=== PATIENT | male | born 1955 | race Caucasian/White ===

== ENCOUNTER 2018-06-30 08:20 | Day surgery (SDC) | payer OTHER ==
[~2018-06-30 08:20] MED LIST: ALLERGY MED PO; Apple Cider Vi500 MG PO; FISH1000; MULVITA PO; NAPR220; ROSU10TA PO; VITAMIN C PO
--- NOTE | 2018-06-30 10:07 | NUR ---
Ambulatory in Day Surgery History, Chart, Medications and Allergies reviewed before start of procedure. Lungs clear T/O to Auscultation. Patient confirms NPO status and agrees with scheduled surgery. Patient States Post-Procedure ride home has been arranged.
--- NOTE | 2018-06-30 13:07 | NUR ---
FROM PACU TO STEP VSS. ALERT ORIENTED. STARTED ON FLUIDS
--- NOTE | 2018-06-30 13:46 | NUR ---
Discharge instructions reviewed with patient. Patient verbalizes understanding. Copy given to patient to take home. Patient States Post-Procedure ride home has been arranged. Discharged via wheelchair to private car for ride home.
== END 2018-06-30 22:40 | disposition home or self-care (01) ==
LOC: ORSCMMR 08:20 → ORD 10:15 → ORSCMMR 22:40
PROVIDERS: Surgery
PROC: 05H533Z Insertion of Infusion Device into Right Subclavian Vein, Percutaneous Approach (ICD-10-PCS; principal; 2018-06-30 10:15)
PROC: B5161ZA Fluoroscopy of Right Subclavian Vein using Low Osmolar Contrast, Guidance (ICD-10-PCS; principal; 2018-06-30 10:15)
DX: C81.2 Mixed cellularity Hodgkin lymphoma (principal); J45.909 Unspecified asthma, uncomplicated; Z79.899 Other long term (current) drug therapy
CPT/HCPCS: 77001; C1788; J0690; J1100; J1642; J2250; J2405; J3010; J7120

== ENCOUNTER 2018-08-25 09:56 | Day surgery (SDC) | payer OTHER ==
[~2018-08-25] VITALS: Ht 172.7 cm; Wt 79.7 kg
--- NOTE | 2018-08-25 10:38 | NUR ---
08/25/18 Tiara Wills V PT RESTING IN BED, SIDE RAILS IN PLACE, CALL LIGHT WITHIN REACH, VSS. PT TEACHING COMPLETED. PT DENIES PAIN, DISCOMFORT AND QUESTIONS AT THIS TIME.
--- NOTE | 2018-08-25 13:25 | NUR ---
08/25/18 1325 Lakeshia Edmondson DISCHARGED IN STABLE CONDITION. ACCESS KIT GIVEN AND INSTRUCTED TO TAKE TO HIS ONCOLOGY APPT. KASSY PO FOOD AND FLUIDS PRIOR TO DC HOME. DENIED PAIN AND NAUSEA. DSG X2 C/D/I. AMBULATED TO CAR W/SBA KASSY WELL
== END 2018-08-25 13:22 | disposition home or self-care (01) ==
LOC: ORSCSDS 09:56
PROVIDERS: Surgery
PROC: B5131ZA Fluoroscopy of Right Jugular Veins using Low Osmolar Contrast, Guidance (ICD-10-PCS; principal; 2018-08-25 11:15)
PROC: 05HM33Z Insertion of Infusion Device into Right Internal Jugular Vein, Percutaneous Approach (ICD-10-PCS; principal; 2018-08-25 11:15)
DX: C81.2 Mixed cellularity Hodgkin lymphoma (principal); T82.514A Breakdown (mechanical) of infusion catheter, initial encounter; E78.00 Pure hypercholesterolemia, unspecified; Z79.899 Other long term (current) drug therapy
CPT/HCPCS: 77001; C1788; J0690; J1642; J2001; J2250; J2704; J3010; J7120

== ENCOUNTER 2019-01-11 17:18 | Emergency (ER) | payer OTHER ==
[~2019-01-11] VITALS: Ht 172.7 cm; Wt 79.4 kg
[2019-01-11 18:48] LABS: Source, Urine Clean Catch
[2019-01-11 18:51] LABS: Appearance, Urine Clear (Clear); Bilirubin, Urine Neg (Neg); Blood, Urine Neg (Neg); Color, Urine Yellow (P-Yellow); Glucose Qualitative, Urine Neg (Neg); Ketones, Urine Neg (Neg); Leukocyte Esterase, Urine Neg (Neg); Nitrite, Urine Neg (Neg); Protein, Urine Neg (Neg); Urobilinogen, Urine NORM (Normal)
== END 2019-01-11 21:45 | disposition home or self-care (01) ==
LOC: ER 17:18
PROVIDERS: Physician Assistant
DX: I86.1 Scrotal varices (principal); Z85.72 Personal history of non-Hodgkin lymphomas; Z79.899 Other long term (current) drug therapy
CPT/HCPCS: 76870; 81003; 96372; 99284-25; A9270; J1885

== ENCOUNTER → 2019-07-11 | Outpatient (CLI) | payer MEDICARE | END | disposition home or self-care (01) | LOC: LAB 10:00 → LAB SHORT 10:00 | DX: R30.0 Dysuria (principal); R31.9 Hematuria, unspecified | CPT/HCPCS: 87077; 87086; 87186 ==

== ENCOUNTER 2019-12-02 12:40 | Inpatient (IN) | payer MEDICARE ==
[~2019-12-02] VITALS: Ht 172.7 cm; Wt 82.5 kg
[2019-12-02 13:33] LABS: BASOPHILS ABSOLUTE AUTO 0.02 K/mm3 (0.00-0.23); BASOPHILS PERCENT AUTO 0 % (0-2); EOSINOPHILS PERCENT AUTO 0 % (0-6); Hematocrit 39.4 % (37.0-53.0); Hemoglobin 13.8 g/dL (13.5-17.5); IMMATURE GRAN ABSOLUTE AUTO 0.07 K/mm3 (0.00-0.10); IMMATURE GRAN PERCENT AUTO 1 % (0-1); LYMPHOCYTES ABSOLUTE AUTO 0.59 K/mm3 (0.84-5.20); LYMPHOCYTES PERCENT AUTO 8 % (21-46); MONOCYTES ABSOLUTE AUTO 0.28 K/mm3 (0.16-1.47); MONOCYTES PERCENT AUTO 4 % (4-13); Mean Corpuscular HGB 31.8 pg (26.0-34.0); Mean Corpuscular Volume 91 fL (80-100); Mean Platelet Volume 10.8 fL (9.1-12.4); NEUTROPHILS ABSOLUTE AUTO 6.73 K/mm3 (1.96-9.15); NEUTROPHILS PERCENT AUTO 88 % (41-73); Platelet Count 106 K/mm3 (150-400); RDW Coefficient Variation 13.5 % (11.7-14.2); RDW Standard Deviation 45.5 fL (35.1-46.3); Red Blood Cell Count 4.34 M/mm3 (4.30-5.90); White Blood Cell Count 7.69 K/mm3 (4.00-11.30)
[2019-12-02 13:36] LABS: Albumin, Blood 2.7 g/dL (3.4-5.0); Albumin/Globulin Ratio 0.7 (0.8-1.8); Bilirubin, Total 5.7 mg/dL (0.1-1.0); Bun/Creatinine Ratio 12.2 (12.0-20.0); Calcium, Blood 8.5 mg/dL (8.5-10.1); Creatinine, Blood 6.5 mg/dL (0.60-1.20); Globulin, Blood 4.1 g/dL (2.2-4.0); Potassium, Blood 3.7 mmol/L (3.5-5.5); Total Protein, Blood 6.8 g/dL (6.4-8.2)
[2019-12-02 13:56] LABS: Source, Urine Clean Catch
[2019-12-02 14:05] LABS: Appearance, Urine Hazy (Clear); Blood, Urine 5+ (Neg); Color, Urine Yellow (P-Yellow); Glucose Qualitative, Urine Neg (Neg); Ketones, Urine Neg (Neg); Leukocyte Esterase, Urine 3+ (Neg); Nitrite, Urine Neg (Neg); Protein, Urine 3+ (Neg); Urobilinogen, Urine 1+ (Normal)
[2019-12-02 14:14] LABS: Bilirubin, Urine 1+ (Neg)
[2019-12-02 14:17] LABS: Amorphous Light (0-Heavy); Bacteria Mod /hpf; Squamous Epithelial Cells Mod /hpf (Few)
[2019-12-02 14:34] LABS: Magnesium, Blood 2.8 mg/dL (1.6-2.4); Phosphorus, Blood 4.4 mg/dL (2.5-4.9)
[2019-12-02 19:21] LABS: International Normalized Ratio 1.24; Prothrombin Time Results 13.1 Sec (9.7-11.5)
--- NOTE | 2019-12-02 19:27 | NUR ---
SHIFT SUMMARY- PT ADMITTED AT 1700. CAME TO SEE HIM AND PLACE ADMIT ORDERS AT AROUND 1800. CONSULT REQUEST PLACED FOR DR GRACIA TILLEY CALLED THE CONSULT HIMSELF. PT ALERT, ORIENTED AND INDEPENDENT IN THE ROOM. PT DAUGHTER IS AT THE BEDSIDE AND IS A NURSE IN THE HOSPITAL. BEDSIDE REPORT COMPLETED WITH NIGHT RN DEQUAN. PT IN BED CALL LIGHT IN REACH, NO S&S OF DISTRESS NOTED AT THE TIME OF SHIFT CHANGE. NS RUNNING AT 125ML/HR PER THE ORDER.
--- NOTE | 2019-12-02 20:00 | NUR ---
BLADDER SCAN EXPLAINED THAT DOCTOR ORDERED BLADDER SCAN. ASKED THAT PATIENT ATTEMPT TO VOID PRIOR TO. VOIDED 150 ML WITH NO RESIDUAL SHOWN DURING BLADDER SCAN.
--- NOTE | 2019-12-02 23:30 | NUR ---
PHYSICIAN CORRESPONDENCE DR. FAGAN IN TO VISIT WITH PATIENT. CALLED PATIENTS DAUGHTER TO GIVE UPDATE WHILE IN ROOM. NEW ORDERS PLACED.
--- NOTE | 2019-12-03 04:24 | NUR ---
SHIFT SUMMARY A/O, ABLE TO MAKE NEEDS KNOWN. COOPERATIVE [facility]. CALLS AND ANSWERS QUESTIONS APPROPRIATELY. C/O PAIN/DISCOMFORT TO HEAD, RATED 7-8/10. NEW ORDERS FROM ON-CALL PHYSICIAN; MEDICATED PER EMAR. APPEARED TO REST MUCH OF NIGHT. IV FLUIDS CONTINUE TO INFUSE WITHOUT COMPLICATIONS. UP SBA; GAIT STEADY. NO ACUTE CHANGES NOTED OVERNIGHT. BED REAMINS IN LOWEST POSITION. CALL LIGHT AND BELONGINGS WITHIN REACH. WCTM. REPORT TO ONCOMING RN.
[2019-12-03 05:10] LABS: BASOPHILS ABSOLUTE AUTO 0.01 K/mm3 (0.00-0.23); BASOPHILS PERCENT AUTO 0 % (0-2); EOSINOPHILS PERCENT AUTO 0 % (0-6); Hematocrit 36.3 % (37.0-53.0); Hemoglobin 12.9 g/dL (13.5-17.5); IMMATURE GRAN ABSOLUTE AUTO 0.04 K/mm3 (0.00-0.10); IMMATURE GRAN PERCENT AUTO 1 % (0-1); LYMPHOCYTES ABSOLUTE AUTO 0.74 K/mm3 (0.84-5.20); LYMPHOCYTES PERCENT AUTO 10 % (21-46); MONOCYTES ABSOLUTE AUTO 0.27 K/mm3 (0.16-1.47); MONOCYTES PERCENT AUTO 4 % (4-13); Mean Corpuscular HGB 31.9 pg (26.0-34.0); Mean Corpuscular HGB Conc 35.5 g/dL (31.5-36.5); Mean Corpuscular Volume 90 fL (80-100); Mean Platelet Volume 10.6 fL (9.1-12.4); NEUTROPHILS ABSOLUTE AUTO 6.38 K/mm3 (1.96-9.15); NEUTROPHILS PERCENT AUTO 86 % (41-73); Platelet Count 110 K/mm3 (150-400); RDW Coefficient Variation 13.4 % (11.7-14.2); RDW Standard Deviation 44.8 fL (35.1-46.3); Red Blood Cell Count 4.04 M/mm3 (4.30-5.90); White Blood Cell Count 7.44 K/mm3 (4.00-11.30)
[2019-12-03 05:46] LABS: CPK Creatine Kinase 108 U/L (39-308); Magnesium, Blood 2.7 mg/dL (1.6-2.4); Prostate Specific Antigen 0.631 ng/mL (0.000-4.000); Thyroid Stimulating Hormone 0.407 uIU/mL (0.360-4.800); Uric Acid, Blood 8.2 mg/dL (3.5-7.2)
[2019-12-03 05:47] LABS: Alanine Aminotransfer (ALT/SGP 73 U/L (12-78); Albumin, Blood 2.4 g/dL (3.4-5.0); Albumin/Globulin Ratio 0.7 (0.8-1.8); Alk Phos 380 U/L (50-136); Anion Gap 13 mmol/L (6-16); Aspartate Aminotrans (AST/SGOT 56 U/L (12-37); Bilirubin, Direct 3.5 mg/dL (0.0-0.3); Bilirubin, Indirect 0.5 mg/dL (0.1-0.7); Blood Urea Nitrogen 88 mg/dL (8-24); Bun/Creatinine Ratio 11.8 (12.0-20.0); CO2, Blood 21 mmol/L (21-32); Calcium, Blood 7.9 mg/dL (8.5-10.1); Chloride, Blood 96 mmol/L (98-108); Creatinine, Blood 7.46 mg/dL (0.60-1.20); Globulin, Blood 3.6 g/dL (2.2-4.0); Glomerular Filtration Rate 8 (60-); Glucose, Blood 109 mg/dL (70-99); Phosphorus, Blood 4.8 mg/dL (2.5-4.9); Potassium, Blood 3.7 mmol/L (3.5-5.5); Sodium, Blood 130 mmol/L (136-145)
--- NOTE | 2019-12-03 07:20 | NUR ---
ASSUMED CARE OF PT- BEDSIDE REPORT COMPLETED WITH NIGHT RN DEQUAN. PT HAS HAD NO CHANGE T/O THE NIGHT HE SLEPT WELL (PER PT) PER REPORT HE VOIDED SEVERAL TIMES DARK YELLOW URINE. SCLERAS APPEAR TO BE LESS YELLOW TODAY AND HIS SKIN APPEARS LESS ORANGE/YELLOW.
--- NOTE | 2019-12-03 17:07 | NUR ---
PT FAMILY AND PT ARE ANXIOUSLY AWAITING THE RESULTS FOR THE MRI HEAD, CALLED DR ROMERO THE RESULTS ARE IN. OK PER DR ROMERO TO TELL THE PT AND FAMILY THAT THE MRI RESULTS SHOW NO BLEEDING, MASS OR STROKE. UPDATED THE FAMILY PER . FAMILY AND PT APPEAR TO BE VERY RELIEVED.
--- NOTE | 2019-12-03 18:03 | NUR ---
SHIFT SUMMARY- PT ALERT, ORIENTED AND INDEPENDENT IN THE ROOM. PT CURRENTLY COMPLETING A 24 HOUR URINE STARTED AT 1215 THIS AFTERNOON. PT HAD AN MRI HEAD TODAY THAT SHOWED NO CHANGES (SEE PREVIOUS NOTE FOR DETAILS). PT KIDNEY FUNCTION IS STILL LOW BUT A RENALLY ADJUSTED DOSE OF TYLENOL WAS GIVEN FOR A HEADACHE. SEE EMAR FOR DETAILS. PT HAD A C/O SOME BURNING IN HIS CHEST SINCE LAST NIGHT BUSHRA ELIMINATED THAT, STARTED THE PT ON IV PROTONIX. PT CURRENTLY SITTING IN BED WITH HIS , CALL LIGHT IN REACH, EATING DINNER. NS RUNNING AT 125ML/HR INTO LEFT AC IV, SLIGHTLY POSITIONAL BUT HAS ONLY DISTALLY OCCLUDED TWICE THIS SHIFT. WILL PASS ALL ON TO NIGHT RN IN BEDSIDE REPORT.
--- NOTE | 2019-12-04 04:14 | NUR ---
SHIFT SUMMARY ASSUMED CARE OF PT AT 1900. PT IS A/OX4, DENIES N/T IN EXTREMITES. HEART SOUNDS REGULAR, LUNG SOUNDS HAVE CRACKLES AT THE BASES, SOB WHEN GETTING UP TO BATHROOM BUT NOT AT REST. STATES ABD IS BLOATED. DR FAGAN CALLED TO CHECK UP ON PT. LUNG SOUNDS BROUGHT UP, DECREASED FLUIDS TO 75 ML/HR AND A ONE TIME DOSE OF BUMEX. PT RESPONDED WELL AND HAD MORE URINE OUTPUT. PT C/O HEADACHE, MEDICATED FOR PAIN PER EMAR. CALL LIGHT IN REACH, BED IN LOWEST POSTION, WILL CONTINUE TO MONITOR UNTIL DAYSHIFT NURSE ARRIVES.
[2019-12-04 04:36] LABS: Hematocrit 35.5 % (37.0-53.0); Hemoglobin 12.5 g/dL (13.5-17.5)
[2019-12-04 04:55] LABS: Albumin, Blood 2.3 g/dL (3.4-5.0); Albumin/Globulin Ratio 0.6 (0.8-1.8); Bilirubin, Direct 2.1 mg/dL (0.0-0.3); Bilirubin, Indirect 0.6 mg/dL (0.1-0.7); Bilirubin, Total 2.7 mg/dL (0.1-1.0); Bun/Creatinine Ratio 13.1 (12.0-20.0); Calcium, Blood 7.7 mg/dL (8.5-10.1); Creatinine, Blood 7.55 mg/dL (0.60-1.20); Globulin, Blood 3.8 g/dL (2.2-4.0); Magnesium, Blood 2.5 mg/dL (1.6-2.4); Phosphorus, Blood 4.6 mg/dL (2.5-4.9); Potassium, Blood 3.7 mmol/L (3.5-5.5); Total Protein, Blood 6.1 g/dL (6.4-8.2)
[2019-12-04 08:09] LABS: HBSAG SCREEN Negative (Negative); HEP B CORE AB, TOT Negative (Negative); HEP C VIRUS AB <0.1 (0.0-0.9)
[2019-12-04 13:06] LABS: Protein, Urine Quantitative 41.3 mg/dL (0.0-11.9)
--- NOTE | 2019-12-04 14:03 | NUR ---
Echocardiogram performed.
[2019-12-04 15:32] LABS: Eosinophils-Raw #,Urine 0
--- NOTE | 2019-12-04 17:38 | NUR ---
PATIENT A/OX4, UP INDEPENDENTLY IN ROOM AND HALLS. NS @ 75ML/HR, INCREASED U/O THIS SHIFT. TOLERATING RENAL DIET. VSS, ON RA. REPORTS MILD HARPER WITH ACTIVITY. REFUSING HEPARIN INJECTIONS. DR. FAGAN CONSULTING. 24 HOUR URINE COMPLETED. PATIENT VOIDING IN URINAL. AT BEDSIDE THROUGHOUT THE SHIFT. CALM AND COOPERATIVE WITH CARE.
--- NOTE | 2019-12-05 04:15 | NUR ---
SHIFT SUMMARY PT PLEASANT AND COOPERATIVE. DENIED ANY PAIN OR DISCOMFORT. ABD SLIGHTLY DISTENDED BUT REMAINS SOFT AND NONTENDER. PT REPORTS THAT IT HAS BEEN SEVERAL DAYS SINCE HE HAS HAD A BOWEL MOVMENT. PT STATED THAT HE RECIEVED BOWEL CARE DURING THE DAY. NO RESULTS SO FAR THIS EVENING. PT SLEPT WELL THROUGHOUT THE NIGHT. NS RUNNING AT 75 ML/HR. LUNGS REMAINED CLEAR. PT HAD UNEVENTFUL NIGHT. SLEPT WELL THROUGH MOST OF THE NIGHT. VITAL SIGNS STABLE. WILL CONTINUE TO MONITOR AND REPORT TO DAY RN.
[2019-12-05 05:02] LABS: BASOPHILS ABSOLUTE AUTO 0.02 K/mm3 (0.00-0.23); BASOPHILS PERCENT AUTO 0 % (0-2); EOSINOPHILS ABSOLUTE AUTO 0.07 K/mm3 (0.00-0.68); EOSINOPHILS PERCENT AUTO 1 % (0-6); Hematocrit 34.8 % (37.0-53.0); Hemoglobin 12.1 g/dL (13.5-17.5); IMMATURE GRAN PERCENT AUTO 1 % (0-1); LYMPHOCYTES ABSOLUTE AUTO 0.97 K/mm3 (0.84-5.20); LYMPHOCYTES PERCENT AUTO 11 % (21-46); MONOCYTES ABSOLUTE AUTO 0.44 K/mm3 (0.16-1.47); MONOCYTES PERCENT AUTO 5 % (4-13); Mean Corpuscular HGB 31.3 pg (26.0-34.0); Mean Corpuscular HGB Conc 34.8 g/dL (31.5-36.5); Mean Corpuscular Volume 90 fL (80-100); NEUTROPHILS ABSOLUTE AUTO 6.98 K/mm3 (1.96-9.15); NEUTROPHILS PERCENT AUTO 81 % (41-73); Platelet Count 141 K/mm3 (150-400); RDW Standard Deviation 46.4 fL (35.1-46.3); Red Blood Cell Count 3.86 M/mm3 (4.30-5.90); White Blood Cell Count 8.58 K/mm3 (4.00-11.30)
[2019-12-05 05:41] LABS: Magnesium, Blood 2.2 mg/dL (1.6-2.4)
[2019-12-05 05:45] LABS: Albumin, Blood 2.2 g/dL (3.4-5.0); Albumin/Globulin Ratio 0.6 (0.8-1.8); Bilirubin, Direct 1.3 mg/dL (0.0-0.3); Bilirubin, Indirect 0.8 mg/dL (0.1-0.7); Bilirubin, Total 2.1 mg/dL (0.1-1.0); Bun/Creatinine Ratio 14.2 (12.0-20.0); Calcium, Blood 7.5 mg/dL (8.5-10.1); Creatinine, Blood 7.1 mg/dL (0.60-1.20); Globulin, Blood 3.7 g/dL (2.2-4.0); Potassium, Blood 3.6 mmol/L (3.5-5.5); Total Protein, Blood 5.9 g/dL (6.4-8.2)
--- NOTE | 2019-12-05 17:28 | NUR ---
PT IS A 64 YO MALE, WHO WAS ADMITTED FOR SERIOUS ACUTE RENAL FAILURE AND LIVER FAILURE. PT IS AXO4, AND ABLE TO MAKE NEEDS KNOWN. PT AT BEDSIDE. PT WALKED TO SEE HIS GRANDCHILDREN OUTSIDE THE HOSPITAL WITH , AND FEELING BETTER TODAY. GENTLE HYDRATION IS ONGOING. PT HAS 20G ON R AC, INFUSING SODIUM BICARB WITH D5W @75ML/HR. NO TELE, AND ON ROOM AIR. USES FWW WITH MINIMAL ASSISTANCE. PT VOIDED ADEQUATELY THROUGHOUT THE SHIFT, ON STRICT I&O'S. NO COMPLAINS OF PAIN, N&V. WILL CONTINUE MONITOR UNTIL NEXT SHIFT REPORT TO RN.
[2019-12-06 04:48] LABS: Hematocrit 37.5 % (37.0-53.0); Hemoglobin 13.1 g/dL (13.5-17.5)
--- NOTE | 2019-12-06 04:52 | NUR ---
SHIFT SUMMARY NO ACUTE CHANGES THIS SHIFT. PT SLEPT WELL THROUGHOUT THE NIGHT. OUTPUT CONTINUING TO IMPROVE WITH 3200 MLS OUT TONIGHT. PT HAS NO COMPLAINTS OF PAIN OR DISCOMFORT. PT REPORTS THAT HE ACTUALLY FEELS QUITE WELL. SOME MINIMAL SOB W/ EXERTION. VITAL SIGNS STABLE. PT RESTING IN BED AT THIS TIME. APPEARS TO BE SLEEPING. WILL CONTINUE TO MONITOR AND REPORT TO DAY RN.
[2019-12-06 05:05] LABS: Albumin, Blood 2.5 g/dL (3.4-5.0); Albumin/Globulin Ratio 0.6 (0.8-1.8); Bilirubin, Direct 1.2 mg/dL (0.0-0.3); Bilirubin, Indirect 0.9 mg/dL (0.1-0.7); Bilirubin, Total 2.1 mg/dL (0.1-1.0); Bun/Creatinine Ratio 17.7 (12.0-20.0); Calcium, Blood 8.1 mg/dL (8.5-10.1); Creatinine, Blood 5.65 mg/dL (0.60-1.20); Globulin, Blood 4.3 g/dL (2.2-4.0); Magnesium, Blood 2.1 mg/dL (1.6-2.4); Phosphorus, Blood 4.9 mg/dL (2.5-4.9); Potassium, Blood 3.4 mmol/L (3.5-5.5); Total Protein, Blood 6.8 g/dL (6.4-8.2)
--- NOTE | 2019-12-06 15:34 | NUR ---
ALERT. ORIENTED. ADMITTED FOR ACUTE KIDNEY AND LIVER FAILURE. LABS GOING IN RIGHT DIRECTION. INDEPENDENT IN ROOM. GENTLE HYDRATION. HAS BEEN WALKING IN HALLWAY WITH W/STEADY GAIT. NO ACUTE CHANGES. WCTM.
[2019-12-07 04:49] LABS: Hematocrit 35.1 % (37.0-53.0)
--- NOTE | 2019-12-07 04:56 | NUR ---
[facility] ATT[facility] SUMMARY PT WAS VERY PLEASANT AND COOPERATIVE DURING THE NIGHT. PT DENIED ANY PAIN OR NUASEA DURING THE SHIFT. PT SLEPT MOST OF THE NIGHT GETTING UP A FEW TIMES TO VOID. PT HAS NS RUNNING AT 50 ML/HR. PT USES CALL LIGHT APPROPRIATLEY AND IS AXO X4. PT IS CURRENTLY SLEEPING W CALL LIGHT WITHIN REACH.
[2019-12-07 05:10] LABS: Albumin, Blood 2.4 g/dL (3.4-5.0); Albumin/Globulin Ratio 0.6 (0.8-1.8); Bilirubin, Indirect 0.7 mg/dL (0.1-0.7); Bilirubin, Total 1.7 mg/dL (0.1-1.0); Bun/Creatinine Ratio 21.8 (12.0-20.0); Creatinine, Blood 3.53 mg/dL (0.60-1.20); Globulin, Blood 4.2 g/dL (2.2-4.0); Magnesium, Blood 1.8 mg/dL (1.6-2.4); Phosphorus, Blood 3.9 mg/dL (2.5-4.9); Potassium, Blood 3.7 mmol/L (3.5-5.5); Total Protein, Blood 6.6 g/dL (6.4-8.2)
[2019-12-07 14:09] LABS: A/G RATIO 1.1 (0.7-1.7); ALBUMIN 2.6 g/dL (2.9-4.4); ALPHA-1-GLOBULIN 0.3 g/dL (0.0-0.4); ALPHA-2-GLOBULIN 0.8 g/dL (0.4-1.0); BETA GLOBULIN 0.8 g/dL (0.7-1.3); GAMMA GLOBULIN 0.7 g/dL (0.4-1.8); GLOBULIN, TOTAL 2.6 g/dL (2.2-3.9); IMMUNOGLOBULIN A, QN, SERUM 169 mg/dL (61-437); IMMUNOGLOBULIN G, QN, SERUM 813 mg/dL (603-1613); IMMUNOGLOBULIN M, QN, SERUM 52 mg/dL (20-172); M-SPIKE Not Observed g/dL (Not Observed); PROTEIN, TOTAL, SERUM 5.2 g/dL (6.0-8.5)
--- NOTE | 2019-12-07 14:14 | NUR ---
REVIEW D'C W/PATIENT AND S.O. AWARE HAS APPT W/ THIS FRIDAY AT 9AM. EVERIVA LIASON IN ROOM AND DISCUSS F/U W/EVERGREEN. AWARE CAN RETURN TO E.R. IF ANY PROBLEMS. URINE AT THIS TIME CLEAR YELLOW AND ADVISED IF ; DECREASE URINE OR DARK URINE BEFORE APPT TO RETURN TO E.R. ANSWER ALL QUESTIONS. IN W/C W/DISCHARGE VOLUNTEER.
[2019-12-08 06:10] LABS: CK-BB 0 % (0); CK-MB 0 % (0-3); CK-MM 100 % (97-100); MACRO TYPE 1 0 % (Not Observed); MACRO TYPE 2 0 % (Not Observed)
[2019-12-09 10:12] LABS: ANTIGLOMERULAR BM AB 4 units (0-20)
[2019-12-09 12:02] LABS: M-SPIKE, % Not Observed % (Not Observed); PROTEIN,TOTAL,URINE 28.6 mg/dL (Not Estab.)
[2019-12-09 13:08] LABS: ANA DIRECT Negative (Negative); ANTIMYELOPEROXIDASE (MPO) ABS <9.0 U/mL (0.0-9.0); ANTIPROTEINASE 3 (PR-3) ABS <3.5 U/mL (0.0-3.5); ATYPICAL PANCA <1:20 titer (Neg:<1:20); CYTOPLASMIC (C-ANCA) <1:20 titer (Neg:<1:20); PERINUCLEAR (P-ANCA) <1:20 titer (Neg:<1:20)
== END 2019-12-07 14:22 | disposition home or self-care (01) | DRG 441 ==
LOC: ER 12:40 → ERHOLD 15:35 → MEDS 15:35
PROVIDERS: Emergency Medicine; Internal Medicine; Internal Medicine Nephrology; ADMIT Internal Medicine Endocrinology, Diabetes & Metabolism
DX: K72.00 Acute and subacute hepatic failure without coma (principal); N17.0 Acute kidney failure with tubular necrosis; E87.1 Hypo-osmolality and hyponatremia; E87.2 Acidosis; E27.49 Other adrenocortical insufficiency; N04.9 Nephrotic syndrome with unspecified morphologic changes; E78.00 Pure hypercholesterolemia, unspecified; J45.909 Unspecified asthma, uncomplicated; K76.89 Other specified diseases of liver; E87.6 Hypokalemia; E88.09 Other disorders of plasma-protein metabolism, not elsewhere classified
CPT/HCPCS: 36415; 51798; 70551; 71045; 74176; 80053; 81001; 82248; 82533; 82550; 82552; 82784; 83516; 83520; 83605; 83735; 84100; 84153; 84156; 84165; 84166; 84443; 84550; 85014; 85018; 85025; 85610; 85730; 86038; 86256; 86334; 86335; 86704; 86708; 86803; 87086; 87205; 87340; 93306; 99284-25; C9113; J1650; J1940; J2405; J7030; J7070

== ENCOUNTER 2020-07-12 09:31 | Day surgery (SDC) | payer MEDICARE ==
[~2020-07-12] VITALS: Ht 172.7 cm; Wt 77.1 kg
[~2020-07-12 09:31] MED LIST changes: +VITAMIN D31000 UNIT PO; +Vitamin B-12100 MCG PO
== END 2020-07-12 11:52 | disposition home or self-care (01) ==
LOC: ORSCSDS 09:31
PROVIDERS: Internal Medicine Gastroenterology
PROC: 0DBM8ZX Excision of Descending Colon, Via Natural or Artificial Opening Endoscopic, Diagnostic (ICD-10-PCS; principal; 2020-07-12 10:45)
DX: Z12.11 Encounter for screening for malignant neoplasm of colon (principal); Z86.010 Personal history of colon polyps; Z80.0 Family history of malignant neoplasm of digestive organs; D12.4 Benign neoplasm of descending colon; K57.30 Diverticulosis of large intestine without perforation or abscess without bleeding; K64.8 Other hemorrhoids; Z79.899 Other long term (current) drug therapy
CPT/HCPCS: 88305; J2704; J7120

== ENCOUNTER → 2022-04-12 | Outpatient (CLI) | payer MEDICARE | END | disposition home or self-care (01) | LOC: LAB SHORT 07:32 → LAB 07:32 | DX: L82.1 Other seborrheic keratosis (principal) | CPT/HCPCS: 88305 ==

== ENCOUNTER 2023-10-22 11:59 | Emergency (ER) | payer MEDICARE ==
[~2023-10-22] VITALS: Ht 172.7 cm; Wt 77.6 kg
[2023-10-22 12:14] VITALS: BP 144/96
[2023-10-22 12:48] LABS: BASOPHILS ABSOLUTE AUTO 0.04 K/mm3 (0.00-0.23); BASOPHILS PERCENT AUTO 1 % (0-2); EOSINOPHILS ABSOLUTE AUTO 0.39 K/mm3 (0.00-0.68); EOSINOPHILS PERCENT AUTO 7 % (0-6); Hematocrit 43.1 % (37.0-53.0); Hemoglobin 14.2 g/dL (13.5-17.5); IMMATURE GRAN ABSOLUTE AUTO 0.01 K/mm3 (0.00-0.10); IMMATURE GRAN PERCENT AUTO 0 % (0-1); LYMPHOCYTES ABSOLUTE AUTO 1.75 K/mm3 (0.84-5.20); LYMPHOCYTES PERCENT AUTO 31 % (21-46); MONOCYTES ABSOLUTE AUTO 0.36 K/mm3 (0.16-1.47); MONOCYTES PERCENT AUTO 7 % (4-13); Mean Corpuscular HGB 31.7 pg (26.0-34.0); Mean Corpuscular HGB Conc 32.9 g/dL (31.5-36.5); Mean Corpuscular Volume 96 fL (80-100); Mean Platelet Volume 8.8 fL (9.1-12.4); NEUTROPHILS ABSOLUTE AUTO 3.02 K/mm3 (1.96-9.15); NEUTROPHILS PERCENT AUTO 54 % (41-73); Platelet Count 218 K/mm3 (150-400); RDW Coefficient Variation 12.4 % (11.7-14.2); RDW Standard Deviation 43.9 fL (35.1-46.3); Red Blood Cell Count 4.48 M/mm3 (4.30-5.90); White Blood Cell Count 5.57 K/mm3 (4.00-11.30)
[2023-10-22 13:41] LABS: Albumin/Globulin Ratio 1.1 (0.8-1.8); Bilirubin, Total 0.7 mg/dL (0.1-1.0); Bun/Creatinine Ratio 25.3 (12.0-20.0); Calcium, Blood 9.2 mg/dL (8.5-10.1); Creatinine, Blood 0.87 mg/dL (0.60-1.20); Globulin, Blood 3.7 g/dL (2.2-4.0); Potassium, Blood 4.7 mmol/L (3.5-5.5); Total Protein, Blood 7.7 g/dL (6.4-8.2)
== END 2023-10-22 16:01 | disposition home or self-care (01) ==
LOC: ER 11:59
PROVIDERS: Physician Assistant
DX: H53.123 Transient visual loss, bilateral (principal); I70.90 Unspecified atherosclerosis; Z79.899 Other long term (current) drug therapy; Z88.1 Allergy status to other antibiotic agents; Z88.0 Allergy status to penicillin; Z88.8 Allergy status to other drugs, medicaments and biological substances
CPT/HCPCS: 70496; 70498; 80053; 85025; 99284-25; Q9967

== ENCOUNTER 2023-12-27 10:00 | Observation (INO) | payer MEDICARE ==
[~2023-12-27] VITALS: Ht 170.2 cm; Wt 73.9 kg
[2023-12-27] MEDS ORDERED: ATOR10 PO (10:21)
[2023-12-27] MEDS ORDERED: ASPI81CH PO (10:22)
[2023-12-27] MEDS ORDERED: COQ-10100 MG PO (10:23)
[2023-12-27 10:44] LABS: BASOPHILS ABSOLUTE AUTO 0.03 K/mm3 (0.00-0.23); BASOPHILS PERCENT AUTO 0 % (0-2); EOSINOPHILS ABSOLUTE AUTO 0.18 K/mm3 (0.00-0.68); EOSINOPHILS PERCENT AUTO 3 % (0-6); Hematocrit 45.1 % (37.0-53.0); Hemoglobin 15.6 g/dL (13.5-17.5); IMMATURE GRAN ABSOLUTE AUTO 0.01 K/mm3 (0.00-0.10); IMMATURE GRAN PERCENT AUTO 0 % (0-1); LYMPHOCYTES ABSOLUTE AUTO 1.66 K/mm3 (0.84-5.20); LYMPHOCYTES PERCENT AUTO 24 % (21-46); MONOCYTES ABSOLUTE AUTO 0.54 K/mm3 (0.16-1.47); MONOCYTES PERCENT AUTO 8 % (4-13); Mean Corpuscular HGB 31.5 pg (26.0-34.0); Mean Corpuscular HGB Conc 34.6 g/dL (31.5-36.5); Mean Corpuscular Volume 91 fL (80-100); Mean Platelet Volume 8.9 fL (9.1-12.4); NEUTROPHILS ABSOLUTE AUTO 4.48 K/mm3 (1.96-9.15); NEUTROPHILS PERCENT AUTO 65 % (41-73); Platelet Count 215 K/mm3 (150-400); RDW Coefficient Variation 12.6 % (11.7-14.2); RDW Standard Deviation 41.4 fL (35.1-46.3); Red Blood Cell Count 4.96 M/mm3 (4.30-5.90)
[2023-12-27 10:45] LABS: Calcium, Ionized (POC) 1.13 mmol/L (1.10-1.46); Chloride (POC) 104 mmol/L (98-108); Creatinine (POC) 1.1 mg/dL (0.8-1.3); Glucose (ISTAT POC) 102 mg/dL (70-99); Hemoglobin (POC) 15.6 g/dL (13.5-17.5); Potassium (POC) 4.3 mmol/L (3.5-5.5); Sodium (POC) 139 mmol/L (135-148); Total CO2 (POC) 22 mmol/L (21-32)
[2023-12-27 11:09] LABS: Albumin, Blood 3.8 g/dL (3.4-5.0); Bilirubin, Total 0.9 mg/dL (0.1-1.0); Bun/Creatinine Ratio 26.7 (12.0-20.0); Calcium, Blood 9.2 mg/dL (8.5-10.1); Creatinine, Blood 1.01 mg/dL (0.60-1.20); Globulin, Blood 3.8 g/dL (2.2-4.0); Potassium, Blood 4.4 mmol/L (3.5-5.5); Total Protein, Blood 7.6 g/dL (6.4-8.2)
[2023-12-27] MEDS ORDERED: Clopidogrel Bisulfate 75 MG Tab PO ONE (11:30)
[2023-12-27] MEDS ORDERED: FLU VACC TS2024-25(6MOS UP)/PF 45 MCG/0.5 ML SYRINGE IM SCH (14:40)
[2023-12-27] MEDS ORDERED: Temazepam 15 MG Cap PO PRN (14:40)
[2023-12-27] MEDS ORDERED: Acetaminophen 325 MG TABLET PO PRN (14:40)
[2023-12-27] MEDS ORDERED: Ondansetron HCl 2 MG / ML 2ML Vial IV PRN (14:40)
[2023-12-27] MEDS ORDERED: Ondansetron 4 MG TAB PO PRN (14:40)
--- NOTE | 2023-12-27 15:10 | NUR ---
ADMIT NOTE: PT ARRIVED AT APPOX 1400. HE IS A/OX4 ABLE TO USE CALL LIGHT AND MAKE NEEDS KNOWN. HE STRENGTH IS EQUAL BILATERALLY. HE CAN MOVE ALL EXTRIMITES WITHOUT PAIN. STEPHEN. HIS FEET AND HANDS ARE COOL TO THE TOUCH, PT STATES THAT IS HIS BASELINE. HE IS ON TELE IN NSR 70S. HE DENIES CHEST PAIN/PRESSURE. HE IS ON RA WITH SPO2>90%, DENIES SOB. PT MOVES IND IN ROOM. HE IS CONTINENT OF BOWEL AND BLADDER. NO SKIN BREAKDOWN NOTED, FEET ARE DARKENED IN COLOR, PT STATES THAT IS HIS BASELINE. WILL CONTINUE TO MONITOR AND PROVIDE CARE
[2023-12-27 15:27] VITALS: BP 131/95
[2023-12-27 20:38] VITALS: BP 124/86
[2023-12-28] MEDS ORDERED: Atorvastatin 10 MG Tab PO SCH (01:00)
[2023-12-28 04:36] VITALS: BP 109/92
[2023-12-28 05:36] LABS: CHOL/HDL RATIO 2.9; Cholesterol 168 mg/dL (50-200); HDL Cholesterol 58 mg/dL (>39); LDL/HDL RATIO 1.6; Low Density Lipoprotein Chol 90 mg/dL (0-110); Triglycerides 98 mg/dL (30-160); Very Low Density Lipoprot Chol 19 mg/dL (6-32)
[2023-12-28 07:13] VITALS: BP 120/87
--- NOTE | 2023-12-28 07:30 | NUR ---
SHIFT SUMMARY NOC PT A/O X 4. PLEASANT AND COOPERATIVE WITH CARE. VSS. BP STABLE POST CVA. NO DEFICITS HAVE BEEN NOTED DURING Q4H NEURO CHECKS. PT DOES ENDORSE OCCASIONAL WHITE FLASHES IN FIELD OF VISION WHICH PT REPORTS HAVE BEEN PRESENT SINCE CABG X 2 IN SEPTEMBER. PT ON TELE SINUS RHYTHM IN 90'S. AT BEDSIDE. PT CURRENTLY RESTING WITH BED IN LOWEST POSITION, AND CALL LIGHT WITHIN REACH.
[2023-12-28] MEDS ORDERED: Enoxaparin 40 MG/0.4 ML SYR SC SCH (09:00)
[2023-12-28] MEDS ORDERED: Clopidogrel Bisulfate 75 MG Tab PO SCH (09:00)
[2023-12-28] MEDS ORDERED: Aspirin 81 MG Chew PO SCH (09:00)
[2023-12-28] MEDS ORDERED: CLOP75 PO (12:53)
--- NOTE | 2023-12-28 13:49 | NUR ---
VSS, A-Ox4, Neuro intact, PEERLA intact, denies SOB, denies any pain, ambulates independently, on RA. Lungs clear, heart regular, bowel sounds normative. Pt D/C 1343, D/C instructions given, safety ensured.
== END 2023-12-28 13:43 | disposition home or self-care (01) ==
LOC: ER 10:00 → MEDS 10:01
PROVIDERS: Physician Assistant; Student in an Organized Health Care Education/Training Program; ADMIT Internal Medicine
DX: G45.9 Transient cerebral ischemic attack, unspecified (principal); I10 Essential (primary) hypertension; I25.10 Atherosclerotic heart disease of native coronary artery without angina pectoris; E78.5 Hyperlipidemia, unspecified; Z95.1 Presence of aortocoronary bypass graft; Z86.73 Personal history of transient ischemic attack (TIA), and cerebral infarction without residual deficits; Z88.8 Allergy status to other drugs, medicaments and biological substances; Z88.0 Allergy status to penicillin; Z88.1 Allergy status to other antibiotic agents; Z79.82 Long term (current) use of aspirin; Z79.899 Other long term (current) drug therapy; Z85.72 Personal history of non-Hodgkin lymphomas; Z95.3 Presence of xenogenic heart valve
CPT/HCPCS: 36415; 70450; 70496; 70498; 70551; 80047; 80053; 80061; 82947; 85014; 85025; 93005; 93010; 96372; 99285-25; A9270; C8929; G0378; J1650; Q9957; Q9967

== ENCOUNTER 2024-02-10 09:19 | Emergency (ER) | payer MEDICARE ==
[~2024-02-10] VITALS: Ht 172.7 cm; Wt 78.9 kg
[~2024-02-10 09:19] MED LIST changes: +ASPI81CH PO; +ATOR10 PO; +CLOP75 PO; +COQ-10100 MG PO
[2024-02-10 10:18] LABS: BASOPHILS ABSOLUTE AUTO 0.05 K/mm3 (0.00-0.23); BASOPHILS PERCENT AUTO 1 % (0-2); EOSINOPHILS ABSOLUTE AUTO 0.24 K/mm3 (0.00-0.68); EOSINOPHILS PERCENT AUTO 4 % (0-6); Hematocrit 42.7 % (37.0-53.0); Hemoglobin 14.8 g/dL (13.5-17.5); IMMATURE GRAN ABSOLUTE AUTO 0.01 K/mm3 (0.00-0.10); IMMATURE GRAN PERCENT AUTO 0 % (0-1); LYMPHOCYTES ABSOLUTE AUTO 1.91 K/mm3 (0.84-5.20); LYMPHOCYTES PERCENT AUTO 30 % (21-46); MONOCYTES ABSOLUTE AUTO 0.43 K/mm3 (0.16-1.47); MONOCYTES PERCENT AUTO 7 % (4-13); Mean Corpuscular HGB 32.4 pg (26.0-34.0); Mean Corpuscular HGB Conc 34.7 g/dL (31.5-36.5); Mean Corpuscular Volume 93 fL (80-100); NEUTROPHILS ABSOLUTE AUTO 3.67 K/mm3 (1.96-9.15); NEUTROPHILS PERCENT AUTO 58 % (41-73); Platelet Count 206 K/mm3 (150-400); RDW Standard Deviation 44.5 fL (35.1-46.3); Red Blood Cell Count 4.57 M/mm3 (4.30-5.90); White Blood Cell Count 6.31 K/mm3 (4.00-11.30)
[2024-02-10 10:31] LABS: Albumin, Blood 3.9 g/dL (3.4-5.0); Albumin/Globulin Ratio 1.2 (0.8-1.8); Bilirubin, Total 1.3 mg/dL (0.1-1.0); Bun/Creatinine Ratio 24.7 (12.0-20.0); Creatinine, Blood 0.97 mg/dL (0.60-1.20); Globulin, Blood 3.3 g/dL (2.2-4.0); Potassium, Blood 4.2 mmol/L (3.5-5.5); Total Protein, Blood 7.2 g/dL (6.4-8.2)
[2024-02-10] MEDS ORDERED: Clopidogrel Bisulfate 75 MG Tab PO ONE (11:15)
[2024-02-10] MEDS ORDERED: CLOP75 PO (11:32)
[2024-02-10 11:45] VITALS: BP 127/87
== END 2024-02-10 11:45 | disposition home or self-care (01) ==
LOC: ER 09:19
PROVIDERS: Emergency Medicine
DX: G45.9 Transient cerebral ischemic attack, unspecified (principal); Z79.82 Long term (current) use of aspirin; Z79.02 Long term (current) use of antithrombotics/antiplatelets; Z79.899 Other long term (current) drug therapy; Z88.0 Allergy status to penicillin; Z88.1 Allergy status to other antibiotic agents; Z88.8 Allergy status to other drugs, medicaments and biological substances
CPT/HCPCS: 70450; 80053; 85025; 93005; 93010; 99285-25; A9270

== ENCOUNTER 2024-03-03 11:24 | Emergency (ER) | payer MEDICARE ==
[~2024-03-03] VITALS: Ht 172.7 cm; Wt 78.5 kg
[2024-03-03 12:08] LABS: BASOPHILS ABSOLUTE AUTO 0.04 K/mm3 (0.00-0.23); BASOPHILS PERCENT AUTO 1 % (0-2); EOSINOPHILS ABSOLUTE AUTO 0.23 K/mm3 (0.00-0.68); EOSINOPHILS PERCENT AUTO 4 % (0-6); Hematocrit 46.7 % (37.0-53.0); Hemoglobin 16.3 g/dL (13.5-17.5); IMMATURE GRAN ABSOLUTE AUTO 0.02 K/mm3 (0.00-0.10); IMMATURE GRAN PERCENT AUTO 0 % (0-1); LYMPHOCYTES ABSOLUTE AUTO 1.89 K/mm3 (0.84-5.20); LYMPHOCYTES PERCENT AUTO 30 % (21-46); MONOCYTES ABSOLUTE AUTO 0.55 K/mm3 (0.16-1.47); MONOCYTES PERCENT AUTO 9 % (4-13); Mean Corpuscular HGB 32.7 pg (26.0-34.0); Mean Corpuscular HGB Conc 34.9 g/dL (31.5-36.5); Mean Corpuscular Volume 94 fL (80-100); Mean Platelet Volume 9.1 fL (9.1-12.4); NEUTROPHILS PERCENT AUTO 56 % (41-73); Platelet Count 244 K/mm3 (150-400); RDW Coefficient Variation 12.9 % (11.7-14.2); RDW Standard Deviation 44.1 fL (35.1-46.3); Red Blood Cell Count 4.99 M/mm3 (4.30-5.90); White Blood Cell Count 6.23 K/mm3 (4.00-11.30)
[2024-03-03 12:21] LABS: Albumin, Blood 4.1 g/dL (3.4-5.0); Albumin/Globulin Ratio 1.1 (0.8-1.8); Bilirubin, Total 1.2 mg/dL (0.1-1.0); Bun/Creatinine Ratio 26.5 (12.0-20.0); Calcium, Blood 9.4 mg/dL (8.5-10.1); Creatinine, Blood 1.02 mg/dL (0.60-1.20); Globulin, Blood 3.6 g/dL (2.2-4.0); Magnesium, Blood 2.4 mg/dL (1.6-2.4); Potassium, Blood 4.6 mmol/L (3.5-5.5); Total Protein, Blood 7.7 g/dL (6.4-8.2)
[2024-03-03 16:58] VITALS: BP 129/107
== END 2024-03-03 16:58 | disposition home or self-care (01) ==
LOC: ER 11:24
PROVIDERS: Physician Assistant
DX: R51.9 Headache, unspecified (principal); H53.8 Other visual disturbances; E78.5 Hyperlipidemia, unspecified; Z79.02 Long term (current) use of antithrombotics/antiplatelets; Z79.82 Long term (current) use of aspirin; Z88.1 Allergy status to other antibiotic agents; Z88.8 Allergy status to other drugs, medicaments and biological substances
CPT/HCPCS: 70450; 80053; 83735; 85025; 93005; 93010; 99284-25